=== PATIENT | male | born 1935 | race African-American/Black ===

== ENCOUNTER 2021-01-03 08:59 | Inpatient (IN) | payer MEDICARE, MEDICAID ==
[2021-01-03] MEDS ORDERED: Azithromycin 500 MG VIAL ONE (09:11)
[2021-01-03] MEDS ORDERED: Acetaminophen 650 MG Suppository ONE (09:11)
[2021-01-03] MEDS ORDERED: cefTRIAXone\\ROCEPHIN 2 GM VIAL ONE (09:11)
[2021-01-03] MEDS ORDERED: Acetaminophen 325 MG Suppository ONE (09:17)
[2021-01-03 09:25] LABS: Bilirubin Neg (Negative); Blood, Urine 150 (Negative); Clarity Cloudy (Clear); Glucose, Urine (Dipstick) Normal (Negative); Ketone, Urine 5 mg/dL (Negative); Leukocyte 500 (Negative); Nitrite Negative (Negative); Protein, Urine (Dipstick) 30 mg/dl (Neg-Trace); Specific Gravity, Urine 1.025 (1.002-1.036)
[2021-01-03 09:41] LABS: Hemoglobin 7.7 g/dL (13.5-17.5); Mean Corpuscular HGB CONC 30.6 g/dL (32.0-36.0); Mean Corpuscular Volume 85.1 fl (81.2-95.1); Mean Platelet Volume 9.2 fl (7.4-10.4); Platelet Count 665 10x3/uL (150-450); RBC Distribution Width 18.6 % (11.5-14.5); Red Blood Cell (RBC) Count 2.96 10x6/uL (4.32-5.72); White Blood Cell (WBC) Count 16.8 10x3/uL (3.5-10.5)
[2021-01-03 09:42] LABS: ALT (SGPT) 30 U/L (8-55); AST (SGOT) 30 U/L (5-34); Albumin 3.2 g/dL (3.4-4.8); Alkaline Phosphatase 123 U/L (40-110); Anion Gap 15 mmol/L (10-20); BUN (Urea Nitrogen) 43 mg/dL (8.4-25.7); Bilirubin, Total 0.5 mg/dL (0.2-1.2); Calc. Creatinine Clearance 0 mL/min (70-130); Calcium 9.7 mg/dL (7.8-10.44); Carbon Dioxide 27 mmol/L (23-31); Chloride 102 mmol/L (98-107); Glucose 148 mg/dL (83-110); Potassium 4.8 mmol/L (3.5-5.1); Protein, Total 7.2 g/dL (5.8-8.1); Sodium 139 mmol/L (136-145)
[2021-01-03 10:29] LABS: WBC/HPF Greater Than 50 HPF (0-3)
[2021-01-03 10:30] LABS: Bacteria/HPF 3+ HPF (None Seen); Squamous Epithelial 0-3 HPF (0-3)
[2021-01-03 10:31] LABS: Calcium Oxalate Crystals Rare HPF (None Seen)
[2021-01-03 10:40] LABS: MDiff Complete? YES
[2021-01-03 10:43] LABS: Band 28 % (5-11); Lymphocytes 5 % (21-51); Monocytes 5 % (0-10); Neutrophil 62 % (42-75)
[2021-01-03 10:45] LABS: Platelet Morphology Comment Appears Increased
[2021-01-03 11:03] LABS: SARS-CoV-2 NAA Rapid Test Not Detected (NotDetected)
[2021-01-03] MEDS ORDERED: Guaifenesin DM 100-10/5 ML UDCUP PER TUBE PRN (12:20)
[2021-01-03] MEDS ORDERED: Acetaminophen 650 MG Suppository PR PRN (12:20)
[2021-01-03] MEDS ORDERED: Ondansetron PF 4 MG/2 ML Vial IVP PRN (12:20)
[2021-01-03] MEDS ORDERED: Senokot S 8.6-50 MG TAB PER TUBE PRN (12:20)
[2021-01-03] MEDS ORDERED: Ondansetron ODT 4 MG TAB PER TUBE PRN (12:20)
[2021-01-03 13:51] VITALS: BMI 23.4
[2021-01-03 14:03] LABS: Lactic Acid 1.6 mmol/L (0.5-2.2)
[2021-01-03] MEDS: Sodium Chloride 0.9% 1,000 ML IV SCH (14:12)
[2021-01-03] MEDS: cefTRIAXone\\ROCEPHIN 2 GM in Sodium Chloride 0.9% 100 ML IVPB SCH (14:15)
[2021-01-03] MEDS: Azithromycin 500 MG in Sodium Chloride 0.9% 250 ML 250 ML IVPB SCH (14:16)
[2021-01-03] MEDS: Acetaminophen 650 MG/20.3 ML UDCUP PER TUBE PRN (19:40)
[2021-01-03] MEDS: levETIRAcetam 500 mg/5 ml Oral Solution PER TUBE SCH (20:06)
[2021-01-03] MEDS: Tamsulosin HCl 0.4 MG CAP PO SCH (20:06)
[2021-01-03] MEDS: Apixaban 2.5 MG TAB PER TUBE SCH (20:06)
[2021-01-04] MEDS: Acetaminophen 650 MG/20.3 ML UDCUP PER TUBE PRN ×2 (02:39→08:28)
[2021-01-04] MEDS: Sodium Chloride 0.9% 1,000 ML IV SCH ×3 (02:57→15:50)
[2021-01-04] MEDS ORDERED: Sodium Chloride 0.9% 250 ML IVPB SCH (06:00)
[2021-01-04] MEDS ORDERED: Metoprolol Tartrate 5 MG/5 ML VIAL IVP SCH (06:00)
[2021-01-04 06:12] LABS: Anion Gap 13 mmol/L (10-20); BUN (Urea Nitrogen) 36 mg/dL (8.4-25.7); Calc. Creatinine Clearance 63 mL/min (70-130); Calcium 9.1 mg/dL (7.8-10.44); Carbon Dioxide 24 mmol/L (23-31); Chloride 111 mmol/L (98-107); Glucose 114 mg/dL (83-110); Potassium 3.5 mmol/L (3.5-5.1); Sodium 144 mmol/L (136-145)
[2021-01-04] MEDS ORDERED: Sodium Chloride 0.9% 250 ML IV SCH (06:15)
[2021-01-04 07:08] LABS: Hemoglobin 6.3 g/dL (13.5-17.5); Mean Corpuscular HGB CONC 30.1 g/dL (32.0-36.0); Mean Corpuscular Hemoglobin 25.9 pg (27.0-33.0); Mean Platelet Volume 9.6 fl (7.4-10.4); Platelet Count 522 10x3/uL (150-450); RBC Distribution Width 18.5 % (11.5-14.5); Red Blood Cell (RBC) Count 2.43 10x6/uL (4.32-5.72); White Blood Cell (WBC) Count 11.9 10x3/uL (3.5-10.5)
[2021-01-04 07:32] LABS: Band 13 % (5-11); Lymphocytes 3 % (21-51); Monocytes 8 % (0-10); Neutrophil 75 % (42-75); Reactive Lymphocytes 1 % (0-10)
[2021-01-04 07:33] LABS: Anisocytosis SLIGHT = 6-15 cells (100X) (0-5/hpf); Dohle Bodies SLIGHT; Hypochromia MODERATE=16-30 cells (100X) (0-5/hpf); Microcytosis SLIGHT = 6-15 cells (100X) (0-5/hpf)
[2021-01-04 07:34] LABS: Large Platelets SLIGHT; Platelet Clumps MODERATE; Platelet Morphology Comment Appears Adequate
[2021-01-04 07:36] LABS: MDiff Complete? YES; Manual Diff?? YES
[2021-01-04] MEDS: Pantoprazole 40 MG GRANULES PACKET PER TUBE SCH (08:28)
[2021-01-04] MEDS: Metoprolol Tartrate 25 MG TAB PER TUBE SCH ×2 (08:28→21:10)
[2021-01-04] MEDS: Finasteride 5 MG TAB PO SCH (08:28)
[2021-01-04] MEDS: Aspirin Chewable 81 MG TAB PER TUBE SCH (08:28)
[2021-01-04] MEDS: Apixaban 2.5 MG TAB PER TUBE SCH ×2 (08:28→21:10)
[2021-01-04] MEDS: levETIRAcetam 500 mg/5 ml Oral Solution PER TUBE SCH ×2 (08:51→21:10)
[2021-01-04] MEDS: cefTRIAXone\\ROCEPHIN 2 GM in Sodium Chloride 0.9% 100 ML IVPB SCH (11:36)
[2021-01-04] MEDS: Azithromycin 500 MG in Sodium Chloride 0.9% 250 ML 250 ML IVPB SCH (12:50)
[2021-01-04] MEDS ORDERED: Digoxin 0.5 MG/2 ML AMP ONE (17:08)
[2021-01-04] MEDS: Tamsulosin HCl 0.4 MG CAP PO SCH (21:10)
[2021-01-05] MEDS: Sodium Chloride 0.9% 1,000 ML IV SCH ×2 (06:01→08:22)
[2021-01-05 08:15] LABS: #Eosinphils 0.5 10x3/uL (0.0-0.5); #Monocytes 0.7 10x3/uL (0.0-1.1); #Neutrophils 9.1 10x3/uL (1.5-8.4); %Basophils 0.3 % (0.0-2.0); %Eosinophils 4.4 % (0.0-6.0); %Lymphocytes 9.7 % (18.0-47.0); %Monocytes 6.1 % (0.0-10.0); %Neutrophils 78.9 % (40.0-75.0); Hemoglobin 7.5 g/dL (13.5-17.5); Mean Corpuscular HGB CONC 30.6 g/dL (32.0-36.0); Mean Corpuscular Hemoglobin 26.4 pg (27.0-33.0); Mean Corpuscular Volume 86.3 fl (81.2-95.1); Mean Platelet Volume 9.1 fl (7.4-10.4); Platelet Count 486 10x3/uL (150-450); RBC Distribution Width 17.2 % (11.5-14.5); Red Blood Cell (RBC) Count 2.84 10x6/uL (4.32-5.72); White Blood Cell (WBC) Count 11.6 10x3/uL (3.5-10.5)
[2021-01-05] MEDS: Pantoprazole 40 MG GRANULES PACKET PER TUBE SCH (08:23)
[2021-01-05] MEDS: Apixaban 2.5 MG TAB PER TUBE SCH ×2 (08:23→21:16)
[2021-01-05] MEDS: Finasteride 5 MG TAB PO SCH (08:23)
[2021-01-05] MEDS: Aspirin Chewable 81 MG TAB PER TUBE SCH (08:23)
[2021-01-05] MEDS: Metoprolol Tartrate 25 MG TAB PER TUBE SCH ×2 (08:23→21:16)
[2021-01-05] MEDS: Acetaminophen 650 MG/20.3 ML UDCUP PER TUBE PRN (08:23)
[2021-01-05] MEDS: levETIRAcetam 500 mg/5 ml Oral Solution PER TUBE SCH ×2 (08:23→21:21)
[2021-01-05 08:33] LABS: Anion Gap 13 mmol/L (10-20); BUN (Urea Nitrogen) 23 mg/dL (8.4-25.7); Calc. Creatinine Clearance 70 mL/min (70-130); Carbon Dioxide 23 mmol/L (23-31); Chloride 114 mmol/L (98-107); Glucose 81 mg/dL (83-110); Magnesium 2.1 mg/dL (1.6-2.6); Potassium 3.7 mmol/L (3.5-5.1); Sodium 146 mmol/L (136-145)
[2021-01-05] MEDS ORDERED: VANCOMYCIN 1.25 GM/250 ML BAG 1.25 GM in Premix Bag 1 BAG IVPB SCH (09:00)
[2021-01-05] MEDS ORDERED: Vancomycin 1 GM in Premix Bag 1 BAG IVPB SCH (09:00)
[2021-01-05] MEDS ORDERED: Potassium Phosphate 30 MMOL in Sodium Chloride 0.9% 250 ML 250 ML IVPB SCH (10:00)
[2021-01-05] MEDS ORDERED: Furosemide 20 MG/2 ML VIAL SLOW IVP SCH (10:15)
[2021-01-05] MEDS: cefTRIAXone\\ROCEPHIN 2 GM in Sodium Chloride 0.9% 100 ML IVPB SCH (11:56)
[2021-01-05] MEDS: Tamsulosin HCl 0.4 MG CAP PO SCH (21:16)
[2021-01-05] MEDS: Vancomycin HCl 750 MG in Sodium Chloride 0.9% 250 ML 250 ML IVPB SCH (21:17)
[2021-01-06] MEDS: Sodium Chloride 0.9% 1,000 ML IV SCH ×3 (00:50→20:20)
[2021-01-06 07:59] LABS: #Eosinphils 0.5 10x3/uL (0.0-0.5); #Monocytes 0.7 10x3/uL (0.0-1.1); #Neutrophils 7.2 10x3/uL (1.5-8.4); %Basophils 0.2 % (0.0-2.0); %Eosinophils 4.8 % (0.0-6.0); %Lymphocytes 13.9 % (18.0-47.0); %Neutrophils 73.5 % (40.0-75.0); Hemoglobin 7.5 g/dL (13.5-17.5); Mean Corpuscular HGB CONC 30.7 g/dL (32.0-36.0); Mean Corpuscular Hemoglobin 26.4 pg (27.0-33.0); Mean Corpuscular Volume 85.9 fl (81.2-95.1); Mean Platelet Volume 8.6 fl (7.4-10.4); Platelet Count 485 10x3/uL (150-450); RBC Distribution Width 17.3 % (11.5-14.5); Red Blood Cell (RBC) Count 2.84 10x6/uL (4.32-5.72); White Blood Cell (WBC) Count 9.8 10x3/uL (3.5-10.5)
[2021-01-06] MEDS: Budesonide 0.5 MG/2 ML NEB NEB PRN (08:30)
[2021-01-06] MEDS ORDERED: Metoprolol Tartrate 50 MG TAB PO SCH (08:30)
[2021-01-06 08:41] LABS: Magnesium 1.9 mg/dL (1.6-2.6); Phosphorus 2.5 mg/dL (2.3-4.7)
[2021-01-06 08:46] LABS: Anion Gap 11 mmol/L (10-20); BUN (Urea Nitrogen) 17 mg/dL (8.4-25.7); Calc. Creatinine Clearance 73 mL/min (70-130); Calcium 8.2 mg/dL (7.8-10.44); Carbon Dioxide 26 mmol/L (23-31); Chloride 114 mmol/L (98-107); Glucose 92 mg/dL (83-110); Potassium 3.8 mmol/L (3.5-5.1); Sodium 147 mmol/L (136-145)
[2021-01-06] MEDS: Finasteride 5 MG TAB PO SCH (10:06)
[2021-01-06] MEDS: Pantoprazole 40 MG GRANULES PACKET PER TUBE SCH (10:06)
[2021-01-06] MEDS: levETIRAcetam 500 mg/5 ml Oral Solution PER TUBE SCH ×2 (10:06→20:19)
[2021-01-06] MEDS: Apixaban 2.5 MG TAB PER TUBE SCH ×2 (10:06→20:19)
[2021-01-06] MEDS: Metoprolol Tartrate 50 MG TAB PO SCH ×2 (10:06→20:19)
[2021-01-06] MEDS: Aspirin Chewable 81 MG TAB PER TUBE SCH (10:06)
[2021-01-06] MEDS: Vancomycin HCl 750 MG in Sodium Chloride 0.9% 250 ML 250 ML IVPB SCH ×2 (10:24→20:19)
[2021-01-06] MEDS: cefTRIAXone\\ROCEPHIN 2 GM in Sodium Chloride 0.9% 100 ML IVPB SCH (12:58)
[2021-01-06] MEDS: Tamsulosin HCl 0.4 MG CAP PO SCH (20:19)
[2021-01-07] MEDS: Sodium Chloride 0.9% 1,000 ML IV SCH (05:53)
[2021-01-07] MEDS: Budesonide 0.5 MG/2 ML NEB NEB PRN (07:25)
[2021-01-07] MEDS ORDERED: Furosemide 20 MG/2 ML VIAL SLOW IVP SCH ×2 (08:15→19:30)
[2021-01-07] MEDS: Finasteride 5 MG TAB PO SCH (08:33)
[2021-01-07] MEDS: Metoprolol Tartrate 50 MG TAB PO SCH ×2 (08:33→20:27)
[2021-01-07] MEDS: Aspirin Chewable 81 MG TAB PER TUBE SCH (08:33)
[2021-01-07] MEDS: Pantoprazole 40 MG GRANULES PACKET PER TUBE SCH (08:33)
[2021-01-07] MEDS: Apixaban 2.5 MG TAB PER TUBE SCH ×2 (08:33→20:26)
[2021-01-07] MEDS: Vancomycin HCl 750 MG in Sodium Chloride 0.9% 250 ML 250 ML IVPB SCH ×2 (08:33→21:16)
[2021-01-07] MEDS: levETIRAcetam 500 mg/5 ml Oral Solution PER TUBE SCH ×2 (08:33→20:27)
[2021-01-07 08:47] LABS: #Eosinphils 0.4 10x3/uL (0.0-0.5); #Monocytes 0.7 10x3/uL (0.0-1.1); #Neutrophils 5.8 10x3/uL (1.5-8.4); %Basophils 0.2 % (0.0-2.0); %Eosinophils 4.6 % (0.0-6.0); %Monocytes 8.3 % (0.0-10.0); %Neutrophils 68.2 % (40.0-75.0); Hemoglobin 7.6 g/dL (13.5-17.5); Mean Corpuscular HGB CONC 30.4 g/dL (32.0-36.0); Mean Corpuscular Hemoglobin 26.7 pg (27.0-33.0); Mean Corpuscular Volume 87.7 fl (81.2-95.1); Platelet Count 504 10x3/uL (150-450); RBC Distribution Width 17.9 % (11.5-14.5); Red Blood Cell (RBC) Count 2.85 10x6/uL (4.32-5.72); White Blood Cell (WBC) Count 8.6 10x3/uL (3.5-10.5)
[2021-01-07 08:58] LABS: Anion Gap 10 mmol/L (10-20); BUN (Urea Nitrogen) 13 mg/dL (8.4-25.7); Calc. Creatinine Clearance 80 mL/min (70-130); Calcium 8.1 mg/dL (7.8-10.44); Carbon Dioxide 24 mmol/L (23-31); Chloride 114 mmol/L (98-107); Glucose 108 mg/dL (83-110); Magnesium 1.8 mg/dL (1.6-2.6); Potassium 3.5 mmol/L (3.5-5.1); Sodium 144 mmol/L (136-145)
[2021-01-07] MEDS: cefTRIAXone\\ROCEPHIN 2 GM in Sodium Chloride 0.9% 100 ML IVPB SCH (13:03)
[2021-01-07] MEDS ORDERED: Potassium Phosphate 30 MMOL in Sodium Chloride 0.9% 250 ML 250 ML IVPB SCH (14:00)
[2021-01-07] MEDS: Tamsulosin HCl 0.4 MG CAP PO SCH (20:27)
[2021-01-07] MEDS ORDERED: Furosemide 40 MG/4 ML VIAL ONE (20:42)
[2021-01-07] MEDS: Meropenem 500 MG in Sodium Chloride 0.9% 100 ML IVPB SCH (21:15)
[2021-01-07] MEDS ORDERED: Meropenem 1 GM in Sodium Chloride 0.9% 100 ML IVPB SCH (22:00)
[2021-01-08] MEDS: Meropenem 500 MG in Sodium Chloride 0.9% 100 ML IVPB SCH ×4 (02:44→20:01)
[2021-01-08 08:37] LABS: Vancomycin, Trough 15.7 ug/mL
[2021-01-08 08:53] LABS: Anion Gap 9 mmol/L (10-20); BUN (Urea Nitrogen) 11 mg/dL (8.4-25.7); Calc. Creatinine Clearance 80 mL/min (70-130); Calcium 8.3 mg/dL (7.8-10.44); Carbon Dioxide 30 mmol/L (23-31); Chloride 107 mmol/L (98-107); Glucose 104 mg/dL (83-110); Magnesium 1.7 mg/dL (1.6-2.6); Phosphorus 2.3 mg/dL (2.3-4.7); Potassium 3.9 mmol/L (3.5-5.1); Sodium 142 mmol/L (136-145)
[2021-01-08] MEDS: Aspirin Chewable 81 MG TAB PER TUBE SCH (09:40)
[2021-01-08] MEDS: Pantoprazole 40 MG GRANULES PACKET PER TUBE SCH (09:40)
[2021-01-08] MEDS: Finasteride 5 MG TAB PO SCH (09:40)
[2021-01-08] MEDS: Metoprolol Tartrate 50 MG TAB PO SCH ×2 (09:40→20:03)
[2021-01-08] MEDS: levETIRAcetam 500 mg/5 ml Oral Solution PER TUBE SCH ×2 (09:41→20:02)
[2021-01-08] MEDS: Vancomycin HCl 750 MG in Sodium Chloride 0.9% 250 ML 250 ML IVPB SCH ×2 (09:41→20:01)
[2021-01-08] MEDS: Apixaban 2.5 MG TAB PER TUBE SCH ×2 (09:41→20:03)
[2021-01-08] MEDS ORDERED: Glycopyrrolate 0.2 MG/ML 5 ML SYRINGE SLOW IVP ONE (14:37)
[2021-01-08] MEDS ORDERED: Furosemide 20 MG/2 ML VIAL SLOW IVP SCH (14:45)
[2021-01-08] MEDS: Acetaminophen 650 MG/20.3 ML UDCUP PER TUBE PRN (20:01)
[2021-01-08] MEDS: Tamsulosin HCl 0.4 MG CAP PO SCH (20:02)
[2021-01-08] MEDS: Digoxin 0.5 MG/2 ML AMP SLOW IVP PRN (22:05)
[2021-01-09] MEDS: Meropenem 500 MG in Sodium Chloride 0.9% 100 ML IVPB SCH ×4 (02:31→22:00)
[2021-01-09 08:54] LABS: Phosphorus 2.2 mg/dL (2.3-4.7)
[2021-01-09 08:57] LABS: Anion Gap 9 mmol/L (10-20); BUN (Urea Nitrogen) 11 mg/dL (8.4-25.7); Calc. Creatinine Clearance 83 mL/min (70-130); Carbon Dioxide 29 mmol/L (23-31); Chloride 108 mmol/L (98-107); Glucose 113 mg/dL (83-110); Magnesium 1.8 mg/dL (1.6-2.6); Potassium 4.1 mmol/L (3.5-5.1); Sodium 142 mmol/L (136-145)
[2021-01-09 08:59] LABS: #Eosinphils 0.7 10x3/uL (0.0-0.5); #Monocytes 0.8 10x3/uL (0.0-1.1); #Neutrophils 7.8 10x3/uL (1.5-8.4); %Basophils 0.3 % (0.0-2.0); %Eosinophils 6.2 % (0.0-6.0); %Lymphocytes 12.5 % (18.0-47.0); %Monocytes 7.2 % (0.0-10.0); %Neutrophils 72.9 % (40.0-75.0); Hemoglobin 7.4 g/dL (13.5-17.5); Mean Corpuscular HGB CONC 30.7 g/dL (32.0-36.0); Mean Corpuscular Hemoglobin 26.3 pg (27.0-33.0); Mean Corpuscular Volume 85.8 fl (81.2-95.1); Mean Platelet Volume 8.7 fl (7.4-10.4); Platelet Count 547 10x3/uL (150-450); RBC Distribution Width 18.3 % (11.5-14.5); Red Blood Cell (RBC) Count 2.81 10x6/uL (4.32-5.72); White Blood Cell (WBC) Count 10.8 10x3/uL (3.5-10.5)
[2021-01-09] MEDS: Metoprolol Tartrate 50 MG TAB PO SCH (09:43)
[2021-01-09] MEDS: Aspirin Chewable 81 MG TAB PER TUBE SCH (09:43)
[2021-01-09] MEDS: Apixaban 2.5 MG TAB PER TUBE SCH ×2 (09:43→21:35)
[2021-01-09] MEDS: levETIRAcetam 500 mg/5 ml Oral Solution PER TUBE SCH ×2 (09:43→21:34)
[2021-01-09] MEDS: Pantoprazole 40 MG GRANULES PACKET PER TUBE SCH (09:43)
[2021-01-09] MEDS: Finasteride 5 MG TAB PO SCH (09:43)
[2021-01-09] MEDS: Vancomycin HCl 750 MG in Sodium Chloride 0.9% 250 ML 250 ML IVPB SCH ×2 (10:04→21:34)
[2021-01-09] MEDS ORDERED: Furosemide 20 MG/2 ML VIAL SLOW IVP SCH (15:30)
[2021-01-09] MEDS ORDERED: Sodium Phosphate 30 MMOL in Sodium Chloride 0.9% 250 ML 250 ML IVPB SCH (16:00)
[2021-01-09] MEDS: Acetaminophen 650 MG/20.3 ML UDCUP PER TUBE PRN (21:34)
[2021-01-09] MEDS: Tamsulosin HCl 0.4 MG CAP PO SCH (21:35)
[2021-01-10] MEDS: Metoprolol Tartrate 50 MG TAB PO SCH ×3 (01:25→22:00)
[2021-01-10] MEDS: Meropenem 500 MG in Sodium Chloride 0.9% 100 ML IVPB SCH ×4 (02:15→21:22)
[2021-01-10 08:37] LABS: #Eosinphils 0.6 10x3/uL (0.0-0.5); #Monocytes 0.6 10x3/uL (0.0-1.1); %Basophils 0.4 % (0.0-2.0); %Lymphocytes 14.9 % (18.0-47.0); %Monocytes 6.4 % (0.0-10.0); %Neutrophils 71.5 % (40.0-75.0); Hemoglobin 7.7 g/dL (13.5-17.5); Mean Corpuscular HGB CONC 30.3 g/dL (32.0-36.0); Mean Corpuscular Hemoglobin 26.6 pg (27.0-33.0); Mean Corpuscular Volume 87.6 fl (81.2-95.1); Mean Platelet Volume 8.9 fl (7.4-10.4); Platelet Count 562 10x3/uL (150-450); RBC Distribution Width 18.9 % (11.5-14.5); White Blood Cell (WBC) Count 9.8 10x3/uL (3.5-10.5)
[2021-01-10 08:38] LABS: Anion Gap 10 mmol/L (10-20)
[2021-01-10] MEDS: Acetaminophen 650 MG/20.3 ML UDCUP PER TUBE PRN ×3 (08:42→21:25)
[2021-01-10] MEDS: Aspirin Chewable 81 MG TAB PER TUBE SCH (08:43)
[2021-01-10] MEDS: levETIRAcetam 500 mg/5 ml Oral Solution PER TUBE SCH ×2 (08:43→21:25)
[2021-01-10] MEDS: Finasteride 5 MG TAB PO SCH (08:43)
[2021-01-10] MEDS: Pantoprazole 40 MG GRANULES PACKET PER TUBE SCH (08:44)
[2021-01-10] MEDS: Apixaban 2.5 MG TAB PER TUBE SCH ×2 (08:44→21:25)
[2021-01-10 09:04] LABS: BUN (Urea Nitrogen) 13 mg/dL (8.4-25.7); Calc. Creatinine Clearance 75 mL/min (70-130); Calcium 8.1 mg/dL (7.8-10.44); Carbon Dioxide 29 mmol/L (23-31); Chloride 107 mmol/L (98-107); Glucose 96 mg/dL (83-110); Magnesium 1.8 mg/dL (1.6-2.6); Phosphorus 2.7 mg/dL (2.3-4.7); Sodium 142 mmol/L (136-145)
[2021-01-10] MEDS: Vancomycin HCl 750 MG in Sodium Chloride 0.9% 250 ML 250 ML IVPB SCH ×2 (09:26→21:23)
[2021-01-10] MEDS ORDERED: Glycopyrrolate 0.2 MG/ML 5 ML SYRINGE SLOW IVP SCH (09:34)
[2021-01-10] MEDS: Digoxin 0.5 MG/2 ML AMP SLOW IVP PRN (10:11)
[2021-01-10] MEDS: Tamsulosin HCl 0.4 MG CAP PO SCH (21:25)
[2021-01-11] MEDS: Meropenem 500 MG in Sodium Chloride 0.9% 100 ML IVPB SCH ×3 (02:55→18:10)
[2021-01-11 04:54] LABS: Calc. Creatinine Clearance 72 mL/min (70-130)
[2021-01-11] MEDS: Metoprolol Tartrate 50 MG TAB PO SCH (08:41)
[2021-01-11] MEDS: Finasteride 5 MG TAB PO SCH (08:45)
[2021-01-11] MEDS: Apixaban 2.5 MG TAB PER TUBE SCH (08:53)
[2021-01-11] MEDS: Pantoprazole 40 MG GRANULES PACKET PER TUBE SCH (08:53)
[2021-01-11] MEDS: Aspirin Chewable 81 MG TAB PER TUBE SCH (08:53)
[2021-01-11] MEDS ORDERED: Digoxin 0.125 MG TAB PO SCH (09:00)
[2021-01-11] MEDS: levETIRAcetam 500 mg/5 ml Oral Solution PER TUBE SCH (09:04)
[2021-01-11] MEDS: Vancomycin HCl 750 MG in Sodium Chloride 0.9% 250 ML 250 ML IVPB SCH (10:13)
[2021-01-11 12:27] VITALS: BP 104/59; TEMP 98.5
== END 2021-01-11 16:14 | DRG 871 ==
LOC: CSHERS 08:59 → CSHTELE 13:47
PROVIDERS: ADMIT Emergency Medicine; ATTEND Hospitalist
PROC: 30233N1 Transfusion of Nonautologous Red Blood Cells into Peripheral Vein, Percutaneous Approach (ICD-10-PCS; principal; 2021-01-05)
DX: A41.9 Sepsis, unspecified organism (principal); J96.22 Acute and chronic respiratory failure with hypercapnia; J96.21 Acute and chronic respiratory failure with hypoxia; J69.0 Pneumonitis due to inhalation of food and vomit; J15.8 Pneumonia due to other specified bacteria; T83.518A Infection and inflammatory reaction due to other urinary catheter, initial encounter; N39.0 Urinary tract infection, site not specified; E87.0 Hyperosmolality and hypernatremia; J44.0 Chronic obstructive pulmonary disease with (acute) lower respiratory infection; R65.20 Severe sepsis without septic shock; Z20.822 Contact with and (suspected) exposure to COVID-19; Z66 Do not resuscitate; K21.9 Gastro-esophageal reflux disease without esophagitis; I69.369 Other paralytic syndrome following cerebral infarction affecting unspecified side; I48.0 Paroxysmal atrial fibrillation; R13.10 Dysphagia, unspecified; E78.5 Hyperlipidemia, unspecified; G40.909 Epilepsy, unspecified, not intractable, without status epilepticus; Z86.711 Personal history of pulmonary embolism; F20.9 Schizophrenia, unspecified; F03.90 Unspecified dementia, unspecified severity, without behavioral disturbance, psychotic disturbance, mood disturbance, and anxiety; D64.9 Anemia, unspecified; Z79.01 Long term (current) use of anticoagulants; Z79.82 Long term (current) use of aspirin; Z74.01 Bed confinement status; I69.991 Dysphagia following unspecified cerebrovascular disease; Z87.820 Personal history of traumatic brain injury; Z79.899 Other long term (current) drug therapy; Z93.1 Gastrostomy status; Z99.81 Dependence on supplemental oxygen; L89.90 Pressure ulcer of unspecified site, unspecified stage
CPT/HCPCS: 0240U; 36415; 36416; 36430; 71045; 71275; 80048; 80053; 80202; 81003; 81015; 82565; 83605; 83735; 83880; 84100; 85025; 86850; 86900; 86901; 87040; 87070; 87077; 87086; 87149; 87205; 89220; 93005; 93010; 94640; 94760; 96365; 96366; 96367; J0456; J0696; J1160; J1940; J2185; J3370; J3490; J7050; J7620; J7626; P9016

== ENCOUNTER 2021-01-14 05:44 | Inpatient (IN) | payer MEDICARE, MEDICAID ==
[2021-01-14] MEDS ORDERED: Meropenem 500 MG VIAL ONE ×2 (06:22→14:44)
[2021-01-14 06:26] LABS: Bilirubin Neg (Negative); Blood, Urine Negative (Negative); Clarity Clear (Clear); Glucose, Urine (Dipstick) Normal (Negative); Ketone, Urine Negative (Negative); Leukocyte Negative (Negative); Nitrite Negative (Negative); Protein, Urine (Dipstick) Negative (Neg-Trace); Urobilinogen Normal mg/dL (Less than 2)
[2021-01-14 06:46] LABS: #Eosinphils 0.2 10x3/uL (0.0-0.5); #Neutrophils 12.3 10x3/uL (1.5-8.4); %Basophils 0.1 % (0.0-2.0); %Eosinophils 1.3 % (0.0-6.0); %Lymphocytes 9.8 % (18.0-47.0); %Monocytes 6.3 % (0.0-10.0); %Neutrophils 82.1 % (40.0-75.0); Hemoglobin 8.5 g/dL (13.5-17.5); Mean Corpuscular HGB CONC 31.3 g/dL (32.0-36.0); Mean Corpuscular Hemoglobin 26.6 pg (27.0-33.0); Mean Corpuscular Volume 85.3 fl (81.2-95.1); Mean Platelet Volume 8.7 fl (7.4-10.4); Platelet Count 572 10x3/uL (150-450); RBC Distribution Width 19.5 % (11.5-14.5); Red Blood Cell (RBC) Count 3.19 10x6/uL (4.32-5.72)
[2021-01-14 06:54] LABS: Digoxin 0.38 ng/mL (0.8-2.0)
[2021-01-14 06:56] LABS: ALT (SGPT) 14 U/L (8-55); Albumin 2.7 g/dL (3.4-4.8); Alkaline Phosphatase 146 U/L (40-110); Anion Gap 16 mmol/L (10-20); BUN (Urea Nitrogen) 9 mg/dL (8.4-25.7); Bilirubin, Total 0.5 mg/dL (0.2-1.2); Calc. Creatinine Clearance 0 mL/min (70-130); Calcium 8.6 mg/dL (7.8-10.44); Carbon Dioxide 25 mmol/L (23-31); Chloride 102 mmol/L (98-107); Globulin 3.4 g/dL (2.4-3.5); Glucose 113 mg/dL (83-110); Potassium 5.6 mmol/L (3.5-5.1); Protein, Total 6.1 g/dL (5.8-8.1); Sodium 137 mmol/L (136-145)
[2021-01-14 06:59] LABS: AST (SGOT) 25 U/L (5-34)
[2021-01-14] MEDS ORDERED: Acetaminophen 500 MG TAB ONE (08:27)
[2021-01-14] MEDS ORDERED: HYDROcodone/Acetaminophen 5/325 mg Tablet PER TUBE PRN (09:27)
[2021-01-14] MEDS ORDERED: Bisacodyl 5 MG TAB PO PRN (09:27)
[2021-01-14] MEDS ORDERED: Acetaminophen 650 MG Suppository PR PRN (09:27)
[2021-01-14] MEDS ORDERED: Ondansetron PF 4 MG/2 ML Vial IVP PRN (09:27)
[2021-01-14] MEDS ORDERED: Sodium Chloride 0.9% 1,000 ML IV SCH (10:00)
[2021-01-14 11:05] LABS: SARS-CoV-2 NAA Rapid Test Not Detected (NotDetected)
[2021-01-14] MEDS ORDERED: Acetaminophen 650 MG/20.3 ML UDCUP PER TUBE PRN (14:09)
[2021-01-14] MEDS ORDERED: Digoxin 0.5 MG/2 ML AMP SLOW IVP SCH (14:15)
[2021-01-14 14:29] VITALS: BMI 19.3
[2021-01-14] MEDS: Meropenem 500 MG in Sodium Chloride 0.9% 100 ML IVPB SCH ×2 (14:55→21:07)
[2021-01-14] MEDS: Scopolamine 1.5 mg/72 hour Patch TD SCH (15:07)
[2021-01-14 17:03] LABS: Anion Gap 9 mmol/L (10-20); BUN (Urea Nitrogen) 7 mg/dL (8.4-25.7); Calc. Creatinine Clearance 70 mL/min (70-130); Calcium 8.5 mg/dL (7.8-10.44); Carbon Dioxide 26 mmol/L (23-31); Chloride 107 mmol/L (98-107); Glucose 100 mg/dL (83-110); Potassium 4.2 mmol/L (3.5-5.1); Sodium 138 mmol/L (136-145)
[2021-01-14] MEDS ORDERED: Vancomycin HCl 750 MG in Sodium Chloride 0.9% 250 ML 250 ML IVPB SCH (18:00)
[2021-01-14] MEDS ORDERED: Metoprolol Tartrate 5 MG/5 ML VIAL IVP PRN (18:18)
[2021-01-14] MEDS ORDERED: Morphine 2 MG/ML VIAL SLOW IVP PRN (18:49)
[2021-01-14] MEDS: Budesonide 0.5 MG/2 ML NEB NEB SCH (21:03)
[2021-01-14] MEDS: Atorvastatin Calcium 10 MG TAB PER TUBE SCH (21:07)
[2021-01-14] MEDS: Metoprolol Tartrate 50 MG TAB PO SCH (21:07)
[2021-01-14] MEDS: Tamsulosin HCl 0.4 MG CAP FS SCH (21:07)
[2021-01-14] MEDS: Apixaban 2.5 MG TAB PO SCH (21:08)
[2021-01-14] MEDS: levETIRAcetam 500 mg/5 ml Oral Solution PER TUBE SCH (21:10)
[2021-01-15] MEDS: Vancomycin HCl 750 MG in Sodium Chloride 0.9% 250 ML 250 ML IVPB SCH ×2 (02:32→15:05)
[2021-01-15] MEDS: Meropenem 500 MG in Sodium Chloride 0.9% 100 ML IVPB SCH ×3 (05:09→19:21)
[2021-01-15 05:24] LABS: #Basophils 0.1 10x3/uL (0.0-0.2); #Eosinphils 0.3 10x3/uL (0.0-0.5); #Monocytes 0.9 10x3/uL (0.0-1.1); #Neutrophils 10.5 10x3/uL (1.5-8.4); %Basophils 0.4 % (0.0-2.0); %Eosinophils 2.4 % (0.0-6.0); %Lymphocytes 13.2 % (18.0-47.0); %Monocytes 6.6 % (0.0-10.0); %Neutrophils 75.9 % (40.0-75.0); Hemoglobin 7.7 g/dL (13.5-17.5); Mean Corpuscular HGB CONC 31.2 g/dL (32.0-36.0); Mean Corpuscular Hemoglobin 26.6 pg (27.0-33.0); Mean Corpuscular Volume 85.2 fl (81.2-95.1); Mean Platelet Volume 9.3 fl (7.4-10.4); Platelet Count 494 10x3/uL (150-450); RBC Distribution Width 19.7 % (11.5-14.5); White Blood Cell (WBC) Count 13.9 10x3/uL (3.5-10.5)
[2021-01-15] MEDS: Budesonide 0.5 MG/2 ML NEB NEB SCH ×2 (07:50→19:31)
[2021-01-15 09:16] LABS: Anion Gap 10 mmol/L (10-20); BUN (Urea Nitrogen) 8 mg/dL (8.4-25.7); Calc. Creatinine Clearance 62 mL/min (70-130); Calcium 8.4 mg/dL (7.8-10.44); Carbon Dioxide 26 mmol/L (23-31); Chloride 104 mmol/L (98-107); Glucose 120 mg/dL (83-110); Potassium 3.9 mmol/L (3.5-5.1); Sodium 136 mmol/L (136-145)
[2021-01-15] MEDS: Pantoprazole 40 MG GRANULES PACKET PER TUBE SCH (10:01)
[2021-01-15] MEDS: levETIRAcetam 500 mg/5 ml Oral Solution PER TUBE SCH ×2 (10:01→21:59)
[2021-01-15] MEDS: Finasteride 5 MG TAB PO SCH (10:01)
[2021-01-15] MEDS: Aspirin Chewable 81 MG TAB PER TUBE SCH (10:01)
[2021-01-15] MEDS: Apixaban 2.5 MG TAB PO SCH ×2 (10:01→21:59)
[2021-01-15] MEDS: Metoprolol Tartrate 50 MG TAB PO SCH ×2 (10:01→21:59)
[2021-01-15] MEDS: Tamsulosin HCl 0.4 MG CAP FS SCH (21:59)
[2021-01-15] MEDS: Atorvastatin Calcium 10 MG TAB PER TUBE SCH (21:59)
[2021-01-16] MEDS ORDERED: Meropenem 500 MG VIAL ONE (01:31)
[2021-01-16] MEDS: Meropenem 500 MG in Sodium Chloride 0.9% 100 ML IVPB SCH ×4 (01:47→19:03)
[2021-01-16] MEDS: Vancomycin HCl 750 MG in Sodium Chloride 0.9% 250 ML 250 ML IVPB SCH ×2 (01:47→15:22)
[2021-01-16 08:02] LABS: Anion Gap 11 mmol/L (10-20)
[2021-01-16 08:07] LABS: #Eosinphils 0.4 10x3/uL (0.0-0.5); #Neutrophils 7.3 10x3/uL (1.5-8.4); %Basophils 0.2 % (0.0-2.0); %Eosinophils 3.6 % (0.0-6.0); %Lymphocytes 14.7 % (18.0-47.0); %Monocytes 9.5 % (0.0-10.0); %Neutrophils 71.6 % (40.0-75.0); Hemoglobin 6.7 g/dL (13.5-17.5); Mean Corpuscular HGB CONC 31.3 g/dL (32.0-36.0); Mean Corpuscular Volume 86.3 fl (81.2-95.1); Mean Platelet Volume 8.8 fl (7.4-10.4); Platelet Count 472 10x3/uL (150-450); RBC Distribution Width 19.4 % (11.5-14.5); Red Blood Cell (RBC) Count 2.48 10x6/uL (4.32-5.72); White Blood Cell (WBC) Count 10.1 10x3/uL (3.5-10.5)
[2021-01-16 08:23] LABS: BUN (Urea Nitrogen) 8 mg/dL (8.4-25.7); Calc. Creatinine Clearance 78 mL/min (70-130); Calcium 6.7 mg/dL (7.8-10.44); Carbon Dioxide 25 mmol/L (23-31); Chloride 111 mmol/L (98-107); Glucose 114 mg/dL (83-110); Potassium 3.8 mmol/L (3.5-5.1); Sodium 143 mmol/L (136-145)
[2021-01-16] MEDS: Digoxin 0.125 MG TAB PO SCH (08:33)
[2021-01-16] MEDS: Aspirin Chewable 81 MG TAB PER TUBE SCH (08:33)
[2021-01-16] MEDS: Finasteride 5 MG TAB PO SCH (08:34)
[2021-01-16] MEDS: Apixaban 2.5 MG TAB PO SCH (08:34)
[2021-01-16] MEDS: levETIRAcetam 500 mg/5 ml Oral Solution PER TUBE SCH ×2 (08:34→23:38)
[2021-01-16] MEDS: Pantoprazole 40 MG GRANULES PACKET PER TUBE SCH (08:34)
[2021-01-16] MEDS: Metoprolol Tartrate 50 MG TAB PO SCH ×2 (08:34→23:38)
[2021-01-16] MEDS ORDERED: Morphine IR 10 MG/5 ML UDCUP PER TUBE PRN (08:56)
[2021-01-16] MEDS: Budesonide 0.5 MG/2 ML NEB NEB SCH ×2 (09:11→19:13)
[2021-01-16] MEDS: Atorvastatin Calcium 10 MG TAB PER TUBE SCH (23:38)
[2021-01-16] MEDS: Tamsulosin HCl 0.4 MG CAP FS SCH (23:38)
[2021-01-17] MEDS: Meropenem 500 MG in Sodium Chloride 0.9% 100 ML IVPB SCH ×4 (02:00→18:54)
[2021-01-17] MEDS: Vancomycin HCl 750 MG in Sodium Chloride 0.9% 250 ML 250 ML IVPB SCH ×2 (02:00→15:20)
[2021-01-17 05:21] LABS: #Eosinphils 0.3 10x3/uL (0.0-0.5); #Monocytes 1.3 10x3/uL (0.0-1.1); #Neutrophils 8.3 10x3/uL (1.5-8.4); %Basophils 0.2 % (0.0-2.0); %Eosinophils 2.3 % (0.0-6.0); %Lymphocytes 10.8 % (18.0-47.0); %Monocytes 11.3 % (0.0-10.0); Hemoglobin 7.4 g/dL (13.5-17.5); Mean Corpuscular HGB CONC 30.3 g/dL (32.0-36.0); Mean Corpuscular Volume 85.6 fl (81.2-95.1); Mean Platelet Volume 8.8 fl (7.4-10.4); Platelet Count 539 10x3/uL (150-450); RBC Distribution Width 19.5 % (11.5-14.5); Red Blood Cell (RBC) Count 2.85 10x6/uL (4.32-5.72); White Blood Cell (WBC) Count 11.1 10x3/uL (3.5-10.5)
[2021-01-17 05:37] LABS: Anion Gap 8 mmol/L (10-20); BUN (Urea Nitrogen) 11 mg/dL (8.4-25.7); Calc. Creatinine Clearance 65 mL/min (70-130); Calcium 8.2 mg/dL (7.8-10.44); Carbon Dioxide 29 mmol/L (23-31); Chloride 103 mmol/L (98-107); Glucose 134 mg/dL (83-110); Potassium 4.4 mmol/L (3.5-5.1); Sodium 136 mmol/L (136-145)
[2021-01-17] MEDS: Budesonide 0.5 MG/2 ML NEB NEB SCH ×2 (07:37→19:25)
[2021-01-17] MEDS: Metoprolol Tartrate 50 MG TAB PO SCH ×2 (11:06→21:35)
[2021-01-17] MEDS: levETIRAcetam 500 mg/5 ml Oral Solution PER TUBE SCH ×2 (11:06→21:36)
[2021-01-17] MEDS: Pantoprazole 40 MG GRANULES PACKET PER TUBE SCH (11:06)
[2021-01-17] MEDS: Digoxin 0.125 MG TAB PO SCH (11:06)
[2021-01-17] MEDS: Aspirin Chewable 81 MG TAB PER TUBE SCH (11:06)
[2021-01-17] MEDS: Finasteride 5 MG TAB PO SCH (11:06)
[2021-01-17 13:13] LABS: Vancomycin, Trough 16.2 ug/mL
[2021-01-17] MEDS: Scopolamine 1.5 mg/72 hour Patch TD SCH (18:54)
[2021-01-17] MEDS: Tamsulosin HCl 0.4 MG CAP FS SCH (21:36)
[2021-01-17] MEDS: Atorvastatin Calcium 10 MG TAB PER TUBE SCH (21:36)
[2021-01-18] MEDS: Meropenem 500 MG in Sodium Chloride 0.9% 100 ML IVPB SCH ×4 (00:54→18:52)
[2021-01-18] MEDS: Vancomycin HCl 750 MG in Sodium Chloride 0.9% 250 ML 250 ML IVPB SCH ×2 (01:59→14:08)
[2021-01-18 06:49] LABS: #Eosinphils 0.4 10x3/uL (0.0-0.5); #Neutrophils 6.8 10x3/uL (1.5-8.4); %Basophils 0.4 % (0.0-2.0); %Eosinophils 4.2 % (0.0-6.0); %Monocytes 10.8 % (0.0-10.0); %Neutrophils 71.3 % (40.0-75.0); Hemoglobin 6.8 g/dL (13.5-17.5); Mean Corpuscular HGB CONC 30.8 g/dL (32.0-36.0); Mean Corpuscular Hemoglobin 26.2 pg (27.0-33.0); Mean Platelet Volume 8.8 fl (7.4-10.4); Platelet Count 498 10x3/uL (150-450); RBC Distribution Width 19.2 % (11.5-14.5); White Blood Cell (WBC) Count 9.5 10x3/uL (3.5-10.5)
[2021-01-18 07:02] LABS: Anion Gap 11 mmol/L (10-20); BUN (Urea Nitrogen) 11 mg/dL (8.4-25.7); Calc. Creatinine Clearance 69 mL/min (70-130); Calcium 8.1 mg/dL (7.8-10.44); Carbon Dioxide 28 mmol/L (23-31); Chloride 104 mmol/L (98-107); Glucose 121 mg/dL (83-110); Potassium 4.7 mmol/L (3.5-5.1); Sodium 138 mmol/L (136-145)
[2021-01-18] MEDS: Budesonide 0.5 MG/2 ML NEB NEB SCH ×2 (07:25→19:05)
[2021-01-18] MEDS: Aspirin Chewable 81 MG TAB PER TUBE SCH (08:57)
[2021-01-18] MEDS: levETIRAcetam 500 mg/5 ml Oral Solution PER TUBE SCH ×2 (08:57→21:50)
[2021-01-18] MEDS: Pantoprazole 40 MG GRANULES PACKET PER TUBE SCH (08:57)
[2021-01-18] MEDS: Digoxin 0.125 MG TAB PO SCH (08:58)
[2021-01-18] MEDS: Finasteride 5 MG TAB PO SCH (08:58)
[2021-01-18] MEDS: Metoprolol Tartrate 50 MG TAB PO SCH ×2 (08:58→21:50)
[2021-01-18] MEDS: Atorvastatin Calcium 10 MG TAB PER TUBE SCH (21:50)
[2021-01-18] MEDS: Tamsulosin HCl 0.4 MG CAP FS SCH (21:51)
[2021-01-19] MEDS: Meropenem 500 MG in Sodium Chloride 0.9% 100 ML IVPB SCH ×2 (01:23→06:43)
[2021-01-19] MEDS: Vancomycin HCl 750 MG in Sodium Chloride 0.9% 250 ML 250 ML IVPB SCH (02:05)
[2021-01-19] MEDS: Budesonide 0.5 MG/2 ML NEB NEB SCH ×2 (07:19→20:30)
[2021-01-19 08:28] LABS: Anion Gap 9 mmol/L (10-20); BUN (Urea Nitrogen) 12 mg/dL (8.4-25.7); Calc. Creatinine Clearance 66 mL/min (70-130); Calcium 8.4 mg/dL (7.8-10.44); Carbon Dioxide 29 mmol/L (23-31); Chloride 103 mmol/L (98-107); Glucose 129 mg/dL (83-110); Potassium 4.7 mmol/L (3.5-5.1); Sodium 136 mmol/L (136-145)
[2021-01-19] MEDS: Finasteride 5 MG TAB PO SCH (08:31)
[2021-01-19] MEDS: levETIRAcetam 500 mg/5 ml Oral Solution PER TUBE SCH ×2 (08:31→21:51)
[2021-01-19] MEDS: Metoprolol Tartrate 50 MG TAB PO SCH ×2 (08:31→21:45)
[2021-01-19] MEDS: Aspirin Chewable 81 MG TAB PER TUBE SCH (08:31)
[2021-01-19] MEDS: Digoxin 0.125 MG TAB PO SCH (08:31)
[2021-01-19] MEDS: Pantoprazole 40 MG GRANULES PACKET PER TUBE SCH (08:31)
[2021-01-19] MEDS: Hydrocodone-Acetamin 15 ML UDCUP PER TUBE PRN (08:32)
[2021-01-19 08:41] LABS: #Eosinphils 0.4 10x3/uL (0.0-0.5); #Neutrophils 7.1 10x3/uL (1.5-8.4); %Basophils 0.3 % (0.0-2.0); %Eosinophils 3.9 % (0.0-6.0); %Lymphocytes 11.5 % (18.0-47.0); %Monocytes 10.7 % (0.0-10.0); %Neutrophils 73.3 % (40.0-75.0); Hemoglobin 9.1 g/dL (13.5-17.5); Mean Corpuscular HGB CONC 31.8 g/dL (32.0-36.0); Mean Corpuscular Hemoglobin 26.8 pg (27.0-33.0); Mean Corpuscular Volume 84.1 fl (81.2-95.1); Platelet Count 512 10x3/uL (150-450); White Blood Cell (WBC) Count 9.7 10x3/uL (3.5-10.5)
[2021-01-19] MEDS: Amoxicillin/Potassium Clav 875 MG TAB PO SCH (21:44)
[2021-01-19] MEDS: Atorvastatin Calcium 10 MG TAB PER TUBE SCH (21:45)
[2021-01-19] MEDS: Apixaban 2.5 MG TAB PO SCH (21:45)
[2021-01-19] MEDS: Tamsulosin HCl 0.4 MG CAP FS SCH (21:46)
[2021-01-20 05:35] LABS: Anion Gap 11 mmol/L (10-20); BUN (Urea Nitrogen) 13 mg/dL (8.4-25.7); Calc. Creatinine Clearance 65 mL/min (70-130); Calcium 8.7 mg/dL (7.8-10.44); Carbon Dioxide 31 mmol/L (23-31); Chloride 101 mmol/L (98-107); Glucose 135 mg/dL (83-110); Sodium 138 mmol/L (136-145)
[2021-01-20 05:42] LABS: #Eosinphils 0.5 10x3/uL (0.0-0.5); #Monocytes 0.8 10x3/uL (0.0-1.1); #Neutrophils 6.7 10x3/uL (1.5-8.4); %Basophils 0.4 % (0.0-2.0); %Lymphocytes 13.1 % (18.0-47.0); %Neutrophils 72.2 % (40.0-75.0); Hemoglobin 9.7 g/dL (13.5-17.5); Mean Corpuscular HGB CONC 31.6 g/dL (32.0-36.0); Mean Corpuscular Hemoglobin 26.6 pg (27.0-33.0); Mean Corpuscular Volume 84.1 fl (81.2-95.1); Platelet Count 543 10x3/uL (150-450); Red Blood Cell (RBC) Count 3.65 10x6/uL (4.32-5.72); White Blood Cell (WBC) Count 9.3 10x3/uL (3.5-10.5)
[2021-01-20] MEDS: Budesonide 0.5 MG/2 ML NEB NEB SCH ×2 (08:35→20:01)
[2021-01-20] MEDS: levETIRAcetam 500 mg/5 ml Oral Solution PER TUBE SCH ×2 (10:08→21:50)
[2021-01-20] MEDS: Amoxicillin/Potassium Clav 875 MG TAB PO SCH ×2 (10:08→21:47)
[2021-01-20] MEDS: Pantoprazole 40 MG GRANULES PACKET PER TUBE SCH (10:08)
[2021-01-20] MEDS: Digoxin 0.125 MG TAB PO SCH (10:08)
[2021-01-20] MEDS: Aspirin Chewable 81 MG TAB PER TUBE SCH (10:08)
[2021-01-20] MEDS: Apixaban 2.5 MG TAB PO SCH ×2 (10:08→21:47)
[2021-01-20] MEDS: Finasteride 5 MG TAB PO SCH (10:09)
[2021-01-20] MEDS: Metoprolol Tartrate 50 MG TAB PO SCH ×2 (10:09→21:48)
[2021-01-20] MEDS: Scopolamine 1.5 mg/72 hour Patch TD SCH (15:26)
[2021-01-20] MEDS: Atorvastatin Calcium 10 MG TAB PER TUBE SCH (21:48)
[2021-01-20] MEDS: Hydrocodone-Acetamin 15 ML UDCUP PER TUBE PRN (21:48)
[2021-01-20] MEDS: Tamsulosin HCl 0.4 MG CAP FS SCH (21:48)
[2021-01-21 06:05] LABS: #Eosinphils 0.5 10x3/uL (0.0-0.5); #Monocytes 0.9 10x3/uL (0.0-1.1); #Neutrophils 5.5 10x3/uL (1.5-8.4); %Basophils 0.4 % (0.0-2.0); %Eosinophils 5.5 % (0.0-6.0); %Lymphocytes 18.8 % (18.0-47.0); %Monocytes 10.8 % (0.0-10.0); %Neutrophils 64.3 % (40.0-75.0); Hemoglobin 10.1 g/dL (13.5-17.5); Mean Corpuscular HGB CONC 31.4 g/dL (32.0-36.0); Mean Corpuscular Hemoglobin 26.8 pg (27.0-33.0); Mean Corpuscular Volume 85.4 fl (81.2-95.1); Mean Platelet Volume 9.2 fl (7.4-10.4); Platelet Count 569 10x3/uL (150-450); RBC Distribution Width 17.9 % (11.5-14.5); Red Blood Cell (RBC) Count 3.77 10x6/uL (4.32-5.72); White Blood Cell (WBC) Count 8.6 10x3/uL (3.5-10.5)
[2021-01-21] MEDS: Budesonide 0.5 MG/2 ML NEB NEB SCH (07:55)
[2021-01-21 08:22] LABS: Anion Gap 11 mmol/L (10-20); BUN (Urea Nitrogen) 14 mg/dL (8.4-25.7); Calc. Creatinine Clearance 62 mL/min (70-130); Calcium 8.8 mg/dL (7.8-10.44); Carbon Dioxide 30 mmol/L (23-31); Chloride 101 mmol/L (98-107); Glucose 134 mg/dL (83-110); Potassium 5.1 mmol/L (3.5-5.1); Sodium 137 mmol/L (136-145)
[2021-01-21] MEDS: Aspirin Chewable 81 MG TAB PER TUBE SCH (09:11)
[2021-01-21] MEDS: levETIRAcetam 500 mg/5 ml Oral Solution PER TUBE SCH (09:11)
[2021-01-21] MEDS: Apixaban 2.5 MG TAB PO SCH (09:11)
[2021-01-21] MEDS: Digoxin 0.125 MG TAB PO SCH (09:11)
[2021-01-21] MEDS: Pantoprazole 40 MG GRANULES PACKET PER TUBE SCH (09:11)
[2021-01-21] MEDS: Metoprolol Tartrate 50 MG TAB PO SCH (09:12)
[2021-01-21] MEDS: Finasteride 5 MG TAB PO SCH (09:12)
[2021-01-21] MEDS: Amoxicillin/Potassium Clav 875 MG TAB PO SCH (09:12)
[2021-01-21 12:15] VITALS: BP 162/90; TEMP 99.9
== END 2021-01-21 14:20 | DRG 871 ==
LOC: CSHERS 05:44 → CSHTELE 13:03
PROVIDERS: ADMIT Internal Medicine; ATTEND Internal Medicine
PROC: 30233N1 Transfusion of Nonautologous Red Blood Cells into Peripheral Vein, Percutaneous Approach (ICD-10-PCS; principal; 2021-01-18)
DX: A41.9 Sepsis, unspecified organism (principal); L89.153 Pressure ulcer of sacral region, stage 3; J69.0 Pneumonitis due to inhalation of food and vomit; G82.50 Quadriplegia, unspecified; D63.8 Anemia in other chronic diseases classified elsewhere; E78.5 Hyperlipidemia, unspecified; R33.9 Retention of urine, unspecified; I10 Essential (primary) hypertension; J44.9 Chronic obstructive pulmonary disease, unspecified; I48.0 Paroxysmal atrial fibrillation; G40.909 Epilepsy, unspecified, not intractable, without status epilepticus; F03.90 Unspecified dementia, unspecified severity, without behavioral disturbance, psychotic disturbance, mood disturbance, and anxiety; N40.0 Benign prostatic hyperplasia without lower urinary tract symptoms; K21.9 Gastro-esophageal reflux disease without esophagitis; Z93.1 Gastrostomy status; R23.4 Changes in skin texture; I69.81 Cognitive deficits following other cerebrovascular disease; I69.865 Other paralytic syndrome following other cerebrovascular disease, bilateral; Z87.820 Personal history of traumatic brain injury
CPT/HCPCS: 36415; 36416; 36430; 71045; 80048; 80053; 80162; 80202; 81003; 83605; 83880; 84145; 84484; 85025; 86850; 86900; 86901; 87040; 87086; 93005; 94640; 94760; 96365; 96367; J1160; J2185; J2270; J3370; J3490; J7050; J7620; J7626; P9016; U0002